=== PATIENT | male | born 1985 | race African-American/Black ===

== ENCOUNTER 2017-04-10 12:15 | Emergency (ER) | payer SELFPAY ==
[~2017-04-10] VITALS: Ht 190.5 cm; Wt 77.1 kg
[2017-04-10 12:28] VITALS: BP 134/86
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
== END 2017-04-10 13:10 | disposition home or self-care (01) ==
LOC: ER 12:15
DX: B35.4 Tinea corporis (principal); Z88.5 Allergy status to narcotic agent
CPT/HCPCS: 99281

== ENCOUNTER 2019-02-05 01:40 | Emergency (ER) | payer SELFPAY ==
[~2019-02-05] VITALS: Ht 188 cm; Wt 75.7 kg
[2019-02-05 02:02] VITALS: BP 156/81
[2019-02-05 02:42] LABS: BASO # 0.1 x10^3/uL (0.0-0.2); BASO % 1 % (0-3); EOS # 0.4 x10^3/uL (0.0-0.7); EOS % 5 % (0-3); HEMOGLOBIN 10.9 g/dL (13.0-17.5); LYMPH # 1.2 x10^3/uL (1.0-4.8); LYMPH % 16 % (24-48); MEAN CORPUSCULAR HEMOGLOBIN 30 pg (25-35); MEAN CORPUSCULAR HGB CONC 32 g/dL (31-37); MEAN CORPUSCULAR VOLUME 92 fL (79-100); MONO % 13 % (0-9); NEUT # 4.8 x10^3uL (1.8-7.7); NEUT % 65 % (31-73); PLATELET COUNT 223 x10^3/uL (140-400); RED BLOOD COUNT 3.69 x10^6/uL (4.30-5.70); RED CELL DISTRIBUTION WIDTH 13.6 % (11.5-14.5); WHITE BLOOD COUNT 7.4 x10^3/uL (4.0-11.0)
[2019-02-05] MEDS ORDERED: KETOROLAC 15 MG/ML VIAL. IV ONE (02:45)
[2019-02-05 02:52] LABS: CALCIUM 8.8 mg/dL (8.5-10.1); CREATININE 1.7 mg/dL (0.7-1.3); GFR 55.8; POTASSIUM 4.1 mmol/L (3.5-5.1)
[2019-02-05 02:57] LABS: PROTHROMBIN TIME PATIENT 12.1 SEC (11.7-14.0)
[2019-02-05 02:58] LABS: ALBUMIN/GLOBULIN RATIO 0.8 (1.0-1.7); MAGNESIUM 1.8 mg/dL (1.8-2.4); TOTAL BILIRUBIN 0.4 mg/dL (0.2-1.0); TOTAL PROTEIN 6.6 g/dL (6.4-8.2)
[2019-02-05] MEDS ORDERED: IV NORMAL SALINE 1000ML BAG 1,000 ML IV ONE (03:00)
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
--- NOTE | 2019-02-05 08:21 | RAD ---
Single view chest dated 02/05/2019: No comparison available. Clinical Indication: Shortness of breath. Findings: Single upright portable exam of the chest was performed. Heart size and mediastinal contours are within normal limits given technique. The lungs are clear without evidence of focal consolidation. Vascular interstitium is within normal limits. Impression:: Negative portable chest. Electronically signed by: Kristopher Givens MD (02/05/2019 8:18 AM) [id number]
--- NOTE | 2019-02-05 08:22 | EKG ---
[facility] [address] [place] [address] Test Date: 2019-02-05 Test Time: 01:48:21 Pat Name: JAMES JOHNSON Department: Room: Gender: M Residential Recycle Driver: : [id number] Requested By: ANGEL UMANZOR Order Number: [id number] Reading MD: Oh Yo Measurements Intervals [place] Rate: 72 P: 44 [place]: 148 QRS: 66 QRSD: 88 T: 32 QT: 352 QTc: 386 Interpretive Statements SINUS RHYTHM AMPLITUDE CRITERIA FOR LVH Electronically Signed On 02-27-2019 12:10:42 CDT by Oh Yo
== END 2019-02-05 06:02 | disposition home or self-care (01) ==
LOC: ER 01:40
DX: R07.89 Other chest pain (principal); R42 Dizziness and giddiness; R51 Headache; R05 Cough; J02.9 Acute pharyngitis, unspecified; M79.18 Myalgia, other site; F17.200 Nicotine dependence, unspecified, uncomplicated; Z88.5 Allergy status to narcotic agent
CPT/HCPCS: 36415; 71045; 80053; 82550; 83735; 83880; 84484; 85025; 85610; 93005; 96361; 96374; 99285; J1885; J7030

== ENCOUNTER 2021-04-06 17:18 | Emergency (ER) | payer SELFPAY ==
[~2021-04-06] VITALS: Ht 190.5 cm; Wt 74.6 kg
[2021-04-06 18:05] VITALS: BP 180/91
[2021-04-06] MEDS ORDERED: LIDOCAINE 1%/EPI 1:100,000 20 ML VIAL. INJ ONE (18:30)
[2021-04-06] MEDS ORDERED: DIPH,PERTUSS(ACELL),TET VAC/PF 0.5 ML SYRINGE. VAX IM ONE (18:30)
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
== END 2021-04-06 19:43 | disposition home or self-care (01) ==
LOC: ER 17:18
DX: S51.811A Laceration without foreign body of right forearm, initial encounter (principal); F17.200 Nicotine dependence, unspecified, uncomplicated; Z88.5 Allergy status to narcotic agent; W18.39XA Other fall on same level, initial encounter; Y93.89 Activity, other specified; Y92.89 Other specified places as the place of occurrence of the external cause; Y99.8 Other external cause status
CPT/HCPCS: 12004; 90471; 90715; 99283; J3490